=== PATIENT | male | born 1970 | race Caucasian/White ===

== ENCOUNTER → 2018-08-26 | Outpatient (CLI) | payer OTHER ==
--- NOTE | 2018-09-07 17:33 | EEG ---
DATE OF SERVICE: 08/26/2018 ELECTROENCEPHALOGRAM NUMBER: [id number]. OBJECTIVE: This is a 48-year-old male patient with history of memory deficits. EEG was requested to evaluate cerebral activity and help rule out seizure. METHODS: Twenty electrodes were applied according to the international 10-20 electrode placement system. EKG monitoring, hyperventilation, intermittent photic stimulation, monopolar and bipolar montages are routinely utilized. The record was obtained on a digital system with video monitoring. FINDINGS: 1. Background: The patient was recorded in the drowsy and sleep states. No clear fully awake state was recorded. The overall background amplitude is 5-10 microvolts. A posterior dominant rhythm is not clearly except 6 Hz per second waves noted. 2. Abnormalities: No specific epileptiform discharge or electrographic seizure is seen. 3. Activation: Hyperventilation was performed with good efforts and normal response. Intermittent photic stimulation was performed with photic driving. Photoparoxysmal response noted. IMPRESSION: This electroencephalogram is not an optimal study. No clear fully awake state was recorded. No lateralizing, specific epileptiform discharge or electrographic seizure is seen. Suggest repeat electroencephalogram with awake, drowsy and sleep states. LARISSA MCCAULEY MD DR: MONTRELL/zaira JOB#: [id number] / [id number]
== END | disposition home or self-care (01) ==
LOC: RT 07:23
PROVIDERS: ATTEND Psychiatry & Neurology Neurology
DX: R41.3 Other amnesia (principal)
CPT/HCPCS: 95816

== ENCOUNTER → 2018-10-16 | Outpatient (CLI) | payer OTHER ==
--- NOTE | 2018-10-16 17:05 | EEG ---
DATE OF SERVICE: 10/16/2018 EEG-NUMBER: This is a 48-year-old male patient with history of memory deficits. EEG was requested to evaluate cerebral activity and help rule out seizure. METHODS: Twenty electrodes were applied according to the international 10-20 electrode placement system. EKG monitoring, hyperventilation, intermittent photic stimulation, monopolar and bipolar montages are routinely utilized. The record was obtained on a digital system with video monitoring. FINDINGS: 1. Background: The patient was recorded mainly in the drowsy and sleep states. No fully awake state was recorded. The overall background amplitude is 5-10 microvolts. No clear posterior dominant rhythm is observed. The overall background rhythm is mainly in the drowsy state. 2. Abnormalities: No specific epileptiform discharge or electrographic seizure is seen. Significant muscle artifact noted throughout the entire recording. 3. Activation: Hyperventilation was performed with good efforts and normal response. Intermittent photic stimulation was performed with photic driving, and photoparoxysmal response noted. No specific epileptiform discharge or electrographic seizure induced by hyperventilation or intermittent photic stimulation. IMPRESSION: This EEG is a borderline study mainly for the drowsy and sleep states. No clear fully awake state was recorded. No focal, lateralizing, specific epileptiform discharge or electrographic seizure is seen. Photoparoxysmal response noted. Artifact is throughout the entire recording. suggest repeat EEG include fully awake state. LARISSA MCCAULEY MD DR: MONTRELL/zaira JOB#: [id number] / [id number]
== END | disposition home or self-care (01) ==
LOC: RT 08:39
PROVIDERS: ATTEND Psychiatry & Neurology Neurology
DX: R41.3 Other amnesia (principal)
CPT/HCPCS: 95816